=== PATIENT | female | born 1990 | race Caucasian/White ===

== ENCOUNTER 2020-01-26 20:32 | Emergency (ER) | payer OTHER ==
[~2020-01-26] VITALS: Ht 177.8 cm; Wt 200.5 kg
[2020-01-26 20:40] VITALS: BP 148/88; Ht 177.8 cm; Wt 200.5 kg
== END 2020-01-26 21:33 | disposition home or self-care (01) ==
LOC: ED 20:32
DX: M54.40 Lumbago with sciatica, unspecified side (principal)
CPT/HCPCS: J1885